=== PATIENT | male | born 1985 | race Caucasian/White ===

== ENCOUNTER 2019-03-19 04:38 | Emergency (ER) | payer MEDICAID, OTHER ==
[~2019-03-19] VITALS: Ht 175.3 cm; Wt 90.0 kg
[2019-03-19] MEDS ORDERED: SOD CHLORIDE 0.9% 1,000 ML IV STA (04:46)
--- NOTE | 2019-03-19 04:50 | ERD ---
ER Documentation Chief Complaint Chief Complaint anxiety HPI 33-year-old gentleman history of anxiety, alcohol abuse who presents to the emergency room with palpitations and chest pain. The patient is a very limited and difficult historian. He states that he has been drinking daily for approximately 1 week. His last drink was several hours ago. The patient states that he feels like his heart is racing. He had a sensation that he felt like he was dying. He denies any significant chest discomfort only palpitations. The patient denies any hematemesis or melena. He denies any suicidal ideation. Symptoms are moderate at this time. ROS All systems reviewed and are negative except as per history of present illness. Medications Home Meds No Active Prescriptions or Reported Meds Allergies Allergies: Coded Allergies: No Known Allergy (Unverified , 12/08/14) PMhx/Soc History of Surgery: No Anesthesia Reaction: No Hx Neurological Disorder: No Hx Respiratory Disorders: No Hx Cardiac Disorders: No Hx Psychiatric Problems: No Hx Miscellaneous Medical Probl: No Hx Alcohol Use: No Hx Substance Use: Yes (COCAINE) Hx Tobacco Use: No FmHx Family History: No diabetes, No coronary disease Physical Exam Vitals Vital Signs Date Temp Pulse Resp B/P (MAP) Pulse Ox O2 O2 Flow FiO2 Time Delivery Rate 03/19/19 90 20 141/95 100 Room Air 05:05 (110) 03/19/19 98.0 89 19 158/112 100 04:51 (127) 03/19/19 Nasal 04:51 Cannula Physical Exam General: Anxious and smells like alcohol Head: Normocephalic, atraumatic. Eyes: Pupils equally reactive, EOM intact ENT: Moist mucous membranes Neck: Supple, no lymphadenopathy Respiratory: Lungs clear bilaterally, no distress Cardiovascular: RRR, no murmurs, rubs, or gallops Abdominal: Soft, non-tender, non-distended, no peritoneal signs : Deferred MSK: No edema, no unilateral swelling, 5/5 strength Neurologic: Alert and oriented, moving all extremities, normal speech, no focal weakness, no cerebellar signs Skin: No rash Psych: Anxious mood Result Diagram: 03/19/19 0459 03/19/19 0459 Results 24 hrs Laboratory Tests Test 03/19/19 04:59 White Blood Count 7.1 10^3/ul Red Blood Count 5.34 10^6/ul Hemoglobin 16.2 g/dl Hematocrit 45.8 % Mean Corpuscular Volume 85.8 fl Mean Corpuscular Hemoglobin 30.3 pg Mean Corpuscular Hemoglobin Concent 35.4 g/dl Red Cell Distribution Width 13.2 % Platelet Count 422 10^3/UL Mean Platelet Volume 10.1 fl Immature Granulocytes % 0.300 % Neutrophils % 38.6 % Lymphocytes % 51.0 % Monocytes % 7.0 % Eosinophils % 0.7 % Basophils % 2.4 % Nucleated Red Blood Cells % 0.0 /100WBC Immature Granulocytes # 0.020 10^3/ul Neutrophils # 2.8 10^3/ul Lymphocytes # 3.6 10^3/ul Monocytes # 0.5 10^3/ul Eosinophils # 0.1 10^3/ul Basophils # 0.2 10^3/ul Nucleated Red Blood Cells # 0.0 10^3/ul Sodium Level 144 mmol/L Potassium Level 3.4 mmol/L Chloride Level 101 mmol/L Carbon Dioxide Level 24 mmol/L Anion Gap 19 Blood Urea Nitrogen < 2 mg/dl Creatinine 0.69 mg/dl Est Glomerular Filtrat Rate mL/min > 60 mL/min Glucose Level 137 mg/dl Calcium Level 9.6 mg/dl Troponin I < 0.012 ng/ml Current Medications Medications Dose Sig/Ying Start Time Status Last (Trade) Ordered Route PRN Stop Time Admin Dose Reason Admin Sodium 1,000 ml @ Q1H STAT 03/19/19 DC 03/19/19 Chloride 1,000 mls/hr IV 04:46 05:05 03/19/19 05:45 Thiamine 100 mg ONCE ONCE 03/19/19 DC HCl PO 05:00 (Vitamin B1) 03/19/19 05:01 Folic Acid 1 mg ONCE ONCE 03/19/19 DC (Folic Acid) PO 05:00 03/19/19 05:01 Diazepam 5 mg ONCE ONCE 03/19/19 DC 03/19/19 (Valium) IV 05:00 05:05 03/19/19 05:01 Procedures/MDM EKG, MONITORS, & DIAGNOSTIC IMAGING: EKG: I reviewed and interpreted a 12-lead EKG. Rhythm: Normal sinus rhythm ST Changes: No contiguous ST segment elevations T waves: No contiguous T wave inversions Impression: No evidence of acute cardiac ischemia LAB INTERPRETATION: I reviewed the laboratory testing and it shows no evidence of acute process MEDICAL DECISION MAKING: Patient's clinical exam history is very consistent with likely anxiety response, possible mild dehydration in the setting of alcohol abuse. I do not believe the patient has significant alcohol withdrawal syndrome. I do not believe the patient's presentation is consistent with acute coronary syndrome or dissection or pulmonary embolism. The patient has no risk factors for early cardiac disease. He is better alternative diagnosis. EKG troponin screening will be reasonable but again very low pretest probability I do not believe serial enzymes or hospitalization are necessary at this time. Patient's main complaint and presentation I believe is consistent with anxiety response. ER COURSE: * An IV was established patient was given IV fluids, multivitamins and anxiolysis * Symptoms improving. Laboratory testing reassuring. Patient can be discharged. * Patient is not a good candidate for outpatient benzodiazepines CONSULTATION: None DISPOSITION PLAN: The patient does not have an identifiable emergent medical condition that warrants inpatient hospitalization at this time. The patient is deemed safe for discharge with outpatient follow-up. We discussed follow up with the patient's primary care doctor within 24 to 48 hours as needed. We also discussed return to the emergency room for worsening symptoms or worsening condition. Outpatient referral: None required Discharge Medications: None required Departure Diagnosis: Primary Impression: Anxiety reaction Additional Impressions: Alcohol abuse Palpitations Condition: Stable CARMELO NEVES MD Mar 19, 2019 04:50
[2019-03-19 04:51] VITALS: Ht 175.3 cm; Wt 90.0 kg
[2019-03-19] MEDS ORDERED: THIAMINE 100 MG TAB PO ONE (05:00)
[2019-03-19] MEDS ORDERED: DIAZEPAM 5 MG/ML SYG IV ONE (05:00)
[2019-03-19] MEDS ORDERED: FOLIC ACID 1 MG TAB PO ONE (05:00)
[2019-03-19 08:15] VITALS: BP 142/86; PULSE 88; RESP 18
== END 2019-03-19 08:17 | disposition home or self-care (01) ==
LOC: E/R 04:38
DX: F10.180 Alcohol abuse with alcohol-induced anxiety disorder (principal); R00.2 Palpitations
CPT/HCPCS: 80048; 84484; 85025; 93005; J3360; J7030; Z7610; 36415; 96361; 96374